=== PATIENT | female | born 2000 | race Caucasian/White ===

== ENCOUNTER 2024-10-10 22:34 | Emergency (ER) | payer OTHER, SELFPAY ==
[2024-10-10 22:59] VITALS: BP 115/62; PULSE 73; RESP 16; TEMP 36.8; O2SAT 95; BMI 21.6
--- NOTE | 2024-10-10 23:43 | ED.WOUNDLAC ---
HPI - Wound/Laceration General Chief Complaint: Wound/Laceration Stated Complaint: lt hand cut Time Seen by Provider: 10/10/24 23:24 Source: patient and family Mode of arrival: Ambulatory History of Present Illness HPI narrative: 24-year-old female presents by private vehicle from home for left thumb laceration. Was opening present boxes at home when she cut herself. Has no idea when her last tetanus shot was administered. Related Data Allergies Allergy/AdvReac Type Severity Reaction Status Date / Time No Known Drug Allergies Allergy Verified 10/11/24 00:39 Patient History Social History Smoking Status: Current every day smoker Smoking Status: Current every day smoker Exam Initial Vital Signs Initial Vital Signs: Vital Signs Temperature 98.3 F 10/10/24 22:59 Pulse Rate 73 10/10/24 22:59 Respiratory Rate 16 10/10/24 22:59 Blood Pressure 115/62 10/10/24 22:59 Pulse Oximetry 95 10/10/24 22:59 Oxygen Delivery Method Room Air 10/10/24 22:59 Const: Awake, alert, no acute distress, nontoxic appearing MSK: full range of motion, pulses equal, no numbness Skin: 1.5 cm linear laceration base of L thumb Neuro: AO x3, CN II-XII grossly intact, moves all extremities Procedures Laceration Repair Laceration 1: Site: hand Side (If applicable): left Size (cm): 1.5 Description: linear Depth: simple, single layer Local Anesthetic: lidocaine 1% and with epi Pre-repair: wound explored, irrigated extensively and deep structures intact Skin layer closed with: nylon Skin layer suture size: 4-0 Number of sutures: 3 Technique: simple, interrupted Course Orders Ordered: Discontinued Medications Diphtheria/Tetanus/Acell Pertussis (Tet,Diph,Pertuss(Acell),Vac/Pf 0.5 Ml Syringe) 0.5 ml IM .ONCE ONE Stop: 10/11/24 00:11 Last Admin: 10/11/24 00:41 Dose: 0.5 ml Documented By: MADISYN Vital Signs Vital signs: Vital Signs - 8 hr 10/10/24 22:59 10/11/24 00:46 Temperature 98.3 F Pulse Rate 73 64 Respiratory Rate 16 18 Blood Pressure 115/62 99/57 L Pulse Oximetry 95 99 Oxygen Delivery Method Room Air Room Air MDM - Wound/Laceration MDM Narrative Medical decision making narrative: Accidental hand laceration. No evidence of muscle or tendon involvement. Patient was full range of motion and intact sensation of her hand. Tetanus shot updated in the emergency department. Wound repaired per procedure note. Care instructions discussed at bedside prior to discharge. Discharge Plan Departure Patient Disposition: Home Clinical Impression: Laceration Instructions: DI for Laceration Repair Activity Restrictions/Additional Instructions: Your stitches will need to come out in 5-7 days. Keep your hand clean and dry. If you get the area wet do not rub it, pat it dry. If you notice redness, drainage, abnormal swelling please return for repeat evaluation. Take Tylenol and ibuprofen as needed for pain. Stand Alone Forms: Patient Portal/API/Survey
[2024-10-11] MEDS: TET,DIPH,PERTUSS(ACELL),VAC/PF 0.5 ML SYRINGE IM (00:41)
[2024-10-11 00:46] VITALS: BP 99/57; PULSE 64; RESP 18; O2SAT 99
== END 2024-10-11 00:46 | disposition home or self-care (01) ==
PROVIDERS: Emergency Provider Emergency Medicine
DX: S61.012A Laceration without foreign body of left thumb without damage to nail, initial encounter (principal); W45.8XXA Other foreign body or object entering through skin, initial encounter; Y93.89 Activity, other specified; Z23 Encounter for immunization
CPT/HCPCS: 12001; 90471; 99283; 99284; 90715